=== PATIENT | female | born 1995 | race Asian ===

== ENCOUNTER 2016-10-30 09:54 | Emergency (ER) | payer BC ==
[2016-10-30] MEDS ORDERED: Ketorolac 60 MG/2 ML SDV IM ONE (11:04)
[2016-10-30 11:19] VITALS: BP 102/73
--- NOTE | 2016-10-30 12:52 | EDM.PDOC ---
ED HPI GENERAL MEDICAL PROBLEM - General Chief Complaint: Chest Pain Stated Complaint: CHEST PAIN Time Seen by Provider: 10/30/16 10:45 Source of Information: Reports: Patient History Limitations: Reports: No Limitations - History of Present Illness INITIAL COMMENTS - FREE TEXT/NARRATIVE: History of present illness: [This 21-year-old female originally from [place] has been working at [employer] and her work requires her to lift 30-50 pound boxes on a regular basis. She is presenting now with pleuritic chest pain very severe neuro had before came on this morning. She's not short of breath with this she has no chest pressure no nausea diaphoresis with this moving her upper extremities or trunk exacerbates her pain. He even twisting exacerbates her pain. 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 Past medical history: As per history of present illness and as reviewed below otherwise noncontributory. Surgical history: As per history of present illness and as reviewed below otherwise noncontributory. Social history: No reported history of drug or alcohol abuse. Family history: As per history of present illness and as reviewed below otherwise noncontributory. Physical exam: HEENT: Atraumatic, normocephalic, pupils reactive, negative for conjunctival pallor or scleral icterus, mucous membranes moist, throat clear, neck supple, nontender, trachea midline. Lungs: Lungs are clear to auscultation but she has exquisite pain to palpation along the per sternal border bilaterally. Heart: S1S2, regular, negative for clicks, rubs, or JVD. Abdomen: Soft, nondistended, nontender. Negative for masses or hepatosplenomegaly. Negative for costovertebral tenderness. Pelvis: Stable nontender. Genitourinary: Deferred. Rectal: Deferred. Extremities: Atraumatic, negative for cords or calf pain. Neurovascular unremarkable. Neuro: Awake, alert, oriented. Cranial nerves II through XII unremarkable. Cerebellum unremarkable. Motor and sensory unremarkable throughout. Exam nonfocal. Diagnostics: [D-dimer troponin are negative EKG is negative chest x-ray is unremarkable no evidence of pneumothorax] Therapeutics: [] Impression: [Costochondritis] Plan: [Recommending [id number] Advil and Tylenol and heat and I'm giving her a work excuse for tonight. I think that her costochondritis is probably related to work and that she pushes herself too hard. I think that's part of her culture and so we talked about that.] Definitive disposition and diagnosis as appropriate pending reevaluation and review of above. - Related Data Allergies Allergy/AdvReac Type Severity Reaction Status Date / Time No Known Allergies Allergy Verified 10/30/16 10:13 Home Meds: Home Meds NK [No Known Home Meds] 10/30/16 [History] Past Medical History HEENT History: Reports: Impaired Vision [employer] History: Reports: Social & Family History - Tobacco Use Smoking Status *Q: Never Smoker - Caffeine Use Caffeine Use: Reports: Coffee - Recreational Drug Use Recreational Drug Use: No ED ROS GENERAL - Review of Systems Review Of Systems: ROS reveals no pertinent complaints other than HPI. ED EXAM, GENERAL - Physical Exam Exam: See Below Course - Vital Signs Last Recorded V/S: Last Vital Signs Temp 36.8 C 10/30/16 10:13 Pulse 65 10/30/16 11:17 Resp 20 10/30/16 10:13 BP 102/73 10/30/16 11:17 Pulse Ox 96 10/30/16 10:13 - Orders/Labs/Meds Orders: Active Orders 24 hr Category Date Time Status EKG Documentation Completion [RC] ASDIRECTED Care 10/30/16 11:00 Active Chest 1V Frontal [CR] Stat Exams 10/30/16 11:00 Ordered EKG 12 Lead [EK] Stat Ther 10/30/16 11:00 Ordered Labs: Laboratory Tests 10/30/16 10/30/16 Range/Units 11:16 11:16 D-Dimer, Quantitative < 100 (0.0-400.0) ng/mL Troponin I < 0.017 (0.000-0.056) ng/mL Meds: Medications Discontinued Medications Generic Name Dose Route Start Last Admin Trade Name Freq PRN Reason Stop Dose Admin Ketorolac Tromethamine 30 mg 10/30/16 11:04 10/30/16 11:14 Toradol IM 10/30/16 11:05 30 mg ONETIME ONE Administration Departure - Departure Time of Disposition: 12:50 Disposition: Home, Self-Care 01 Condition: Fair Clinical Impression: Costochondritis, acute Forms: ED Department Discharge Additional Instructions: As I stated you could try putting heat on your chest to help relieve the pain. You can use [id number] ibuprofen 2 pills every 4-6 hours as needed for pain. You can also use Tylenol in addition to that. I'm providing you a work excuse for tonight. If you still have trouble and are unable to return to work due to pain and then go into the urgent care clinic and they can take care of you there. - My Orders Last 24 Hours: My Active Orders 10/30/16 11:00 EKG Documentation Completion [RC] ASDIRECTED Chest 1V Frontal [CR] Stat EKG 12 Lead [EK] Stat - Assessment/Plan Last 24 Hours: My Active Orders 10/30/16 11:00 EKG Documentation Completion [RC] ASDIRECTED Chest 1V Frontal [CR] Stat EKG 12 Lead [EK] Stat
--- NOTE | 2016-11-01 12:07 | CR ---
Chest 1V Frontal INDICATION: chest pain FINDINGS: No comparison. Prominent right nipple shadow. AP portable chest x-ray otherwise negative.
== END 2016-10-30 13:07 | disposition home or self-care (01) ==
LOC: JP.ED 09:54
DX: M94.0 Chondrocostal junction syndrome [Tietze] (principal); H54.7 Unspecified visual loss
CPT/HCPCS: 36415; 71010; 84484; 85379; 93005; 96372; 99284; J1885